=== PATIENT | male | born 1995 | race Asian ===

== ENCOUNTER 2022-06-11 02:07 | Emergency (ER) | payer OTHER ==
[~2022-06-11] VITALS: Ht 185.4 cm; Wt 74.8 kg
[2022-06-11 02:20] VITALS: BP_SYST 151
[2022-06-11] MEDS: IBUPROFEN 400 MG TABLET PO ONE ×2 (03:40→04:43)
[2022-06-11 03:45] VITALS: BP_SYST 128
[2022-06-11] MEDS ORDERED: IBUPROFEN 400 MG TABLET ONE (04:05)
== END 2022-06-11 03:45 | disposition home or self-care (01) ==
LOC: SED 02:07
DX: L25.9 Unspecified contact dermatitis, unspecified cause (principal); R21 Rash and other nonspecific skin eruption; Z91.013 Allergy to seafood; Z79.899 Other long term (current) drug therapy
CPT/HCPCS: 99283